=== PATIENT | male | born 1970 | race Hispanic/Latino ===

== ENCOUNTER → 2017-08-30 | Day surgery (SDC) | payer OTHER ==
[2017-08-26 11:49] LABS: BASOPHILS % 0.5 % (0.0-1.0); EOSINOPHILS # (AUTO) 0.2 (0.0-0.4); EOSINOPHILS % 3.2 % (0.0-6.0); HEMATOCRIT 44.6 % (38.2-49.6); HEMOGLOBIN 15.3 g/dL (14.0-18.0); LYMPHOCYTES # (AUTO) 1.2 (1.0-3.2); LYMPHOCYTES % 20.8 % (18.0-39.1); MEAN CORPUSCULAR HEMOGLOBIN 29.9 pg (28-32); MEAN CORPUSCULAR HGB CONC 34.3 g/dL (31-35); MEAN CORPUSCULAR VOLUME 87.3 fL (81-99); MONOCYTES # (AUTO) 0.6 (0.2-0.8); MONOCYTES % 10.2 % (4.4-11.3); NEUTROPHILS # (AUTO) 3.6 (2.1-6.9); NEUTROPHILS % 65.1 % (38.7-80.0); PLATELET COUNT 292 x10e3/uL (140-360); RED BLOOD COUNT 5.11 x10e6/uL (4.3-5.7); RED CELL DISTRIBUTION WIDTH 12.3 % (11.7-14.4)
[2017-08-26 11:59] LABS: ANION GAP 11.3 mmol/L (8-16); BLOOD UREA NITROGEN 13 mg/dL (7-26); BUN/CREATININE RATIO 15 (6-25); CALCIUM 10.1 mg/dL (8.4-10.2); CARBON DIOXIDE 32 mmol/L (22-29); CHLORIDE 102 mmol/L (98-107); CREATININE, SERUM 0.87 mg/dL (0.72-1.25); EST GLOMERULAR FILTRATION RATE > 60 ML/MIN (60-); GLUCOSE 95 mg/dL (74-118); POTASSIUM 4.3 mmol/L (3.5-5.1); SODIUM 141 mmol/L (136-145)
[~2017-08-30] MED LIST: FENTANYL CITRATE/PF 100MCG/2 ML INJ ONE; LIDOCAINE HCL 2% LOCAL INJ 5 ML SDV VIAL INJ ONE; MIDAZOLAM HCL 2 MG/2 ML VIAL ONE; ONDANSETRON HCL INJ 2 MG/ML VIAL ONE; PROPOFOL IV EMULSION 10 MG/ML 20 ML VIAL ONE
== END | disposition home or self-care (01) ==
LOC: OR 05:42
PROVIDERS: ATTEND Surgery
DX: K55.21 Angiodysplasia of colon with hemorrhage (principal); K64.8 Other hemorrhoids; G47.33 Obstructive sleep apnea (adult) (pediatric); I44.0 Atrioventricular block, first degree; Z01.810 Encounter for preprocedural cardiovascular examination; Z01.812 Encounter for preprocedural laboratory examination
CPT/HCPCS: 36415; 45380; 80048; 85025; 88305; 88313; 93005; J2001; J2250; J2405

== ENCOUNTER 2017-09-03 06:42 | Observation (INO) | payer OTHER ==
[~2017-09-03] VITALS: Ht 175.3 cm; Wt 65.8 kg
[2017-09-03] MEDS ORDERED: BUPIVACAINE 0.25%/EPI 30ML SDV INJ ONE (08:36)
[2017-09-03] MEDS ORDERED: LIDOCAINE HCL 1% LOCAL INJ 20 ML VIAL ONE (08:36)
[2017-09-03] MEDS ORDERED: ONDANSETRON HCL INJ 2 MG/ML VIAL ONE (08:50)
[2017-09-03] MEDS ORDERED: GELATIN SPONGE 12-7MM ONE (08:51)
[2017-09-03] MEDS ORDERED: LIDOCAINE HCL 2% 30 ML TUBE ONE (08:51)
[2017-09-03] MEDS ORDERED: GELATIN SPONGE SZ 100 ONE (09:42)
[2017-09-03] MEDS ORDERED: SODIUM CHLORIDE 0.9% 1000ML 1,000 ML IV SCH (10:17)
[2017-09-03] MEDS ORDERED: KETOROLAC TROMETHAMINE 30 MG/ML VIAL IV PRN (10:30)
[2017-09-03] MEDS ORDERED: HYDROCODONE/APAP 7.5MG-325MG 1 EA TAB PO PRN (10:30)
[2017-09-03] MEDS ORDERED: PROMETHAZINE HCL (IM) 25 MG/ML VIAL IV PRN (10:30)
[2017-09-03] MEDS ORDERED: HYDROMORPHONE 1MG/1ML INJ IV PRN (10:30)
[2017-09-03] MEDS ORDERED: ACETAMINOPHEN 1000 MG/100 ML IV PRN (10:30)
[2017-09-03] MEDS ORDERED: PROMETHAZINE 12.5MG/ NACL 0.9% 50 ML IV PRN (11:15)
[2017-09-03] MEDS ORDERED: CEFAZOLIN SOD 1 GM VIAL IV SCH (12:00)
[2017-09-03] MEDS ORDERED: CEFOXITIN 1GM/ DEXTROSE 50ML 50 ML IV SCH (12:00)
[2017-09-03] MEDS ORDERED: PANTOPRAZOLE 40 MG 10ML VIAL IV SCH (12:00)
--- NOTE | 2017-09-03 12:14 | Operative Report ---
DATE OF PROCEDURE: September 03, 2017 PREOPERATIVE DIAGNOSIS: Thrombosed prolapsing bleeding, internal and external hemorrhoids. POSTOPERATIVE DIAGNOSIS: Thrombosed prolapsing bleeding, internal and external hemorrhoids. OPERATION PERFORMED: Internal and external hemorrhoidectomy. ANESTHESIA: General. COMPLICATIONS: None. ESTIMATED BLOOD LOSS: Minimal. DESCRIPTION OF PROCEDURE: With the patient lying in bed in the lithotomy position under good general anesthesia, the perineum was prepped with Betadine solution and draped in the usual manner. A complete anorectal block was then performed with 0.25% Marcaine and 1% Xylocaine with epinephrine mixed in equal parts. Examination at this point revealed there was a large prolapsing bleeding hemorrhoid that was at the 8 o'clock position. This was a large group. There were 2 smaller groups at the 12 and 4 o'clock position. The 8 o'clock position was done first. The base of the hemorrhoid was then ligated with 0 chromic suture. The external component along with internal component was then sharply excised and the base of the hemorrhoid was oversewn with the same 0 chromic suture. The mucosa and the skin were then reapproximated with interrupted sutures of 3-0 chromic. The hemorrhoids at 12 and 4 o'clock position were ligated with 0 chromic suture. Hemostasis was ascertained. A Gelfoam packing impregnated with Xylocaine was placed. A dressing was applied. The sponge, lap, and needle count was correct. Patient tolerated the procedure well and returned to the recovery room in stable condition. Job#: [id number]
[2017-09-03 12:25] VITALS: BP 104/80
[2017-09-03] MEDS: CEFOXITIN SOD 1 GM VIAL IV SCH ×2 (12:54→18:31)
[2017-09-03 13:12] VITALS: BP 104/80
[2017-09-03 13:26] VITALS: BP 104/80
[2017-09-03] MEDS ORDERED: PROPOFOL IV EMULSION 10 MG/ML 20 ML VIAL ONE (14:20)
[2017-09-03] MEDS ORDERED: SEVOFLURANE INHAL SOLN 250 ML PEN BTL ONE (14:20)
[2017-09-03] MEDS ORDERED: DEXAMETHASONE SOD PHOS INJ 4 MG/ML VIAL ONE (14:20)
[2017-09-03] MEDS ORDERED: LIDOCAINE HCL 2% LOCAL INJ 5 ML SDV VIAL INJ ONE (14:20)
[2017-09-03 16:32] VITALS: BP 109/77
[2017-09-03] MEDS ORDERED: FENTANYL CITRATE/PF 100MCG/2 ML INJ ONE (17:27)
[2017-09-03] MEDS ORDERED: MIDAZOLAM HCL 2 MG/2 ML VIAL ONE (17:27)
[2017-09-03 19:42] VITALS: BP 134/78
[2017-09-03 20:00] VITALS: BP 117/72
== END 2017-09-03 21:15 | disposition home or self-care (01) ==
LOC: OR 06:42 → PACU V 10:18 → IMCU 12:14
PROVIDERS: ADMIT Surgery; ATTEND Surgery
DX: K64.8 Other hemorrhoids (principal); G47.33 Obstructive sleep apnea (adult) (pediatric); R11.0 Nausea; F41.9 Anxiety disorder, unspecified
CPT/HCPCS: 46260; 88302; G0378; J0694; J1100; J2001 ×2; J2250; J2405; J7030